=== PATIENT | male | born 1955 | race African-American/Black ===

== ENCOUNTER 2017-04-24 18:31 | Emergency (ER) | payer OTHER ==
[~2017-04-24] VITALS: Ht 177.8 cm; Wt 84.1 kg
[2017-04-24 19:57] LABS: HEMATOCRIT 48.5 % (38.0-50.0); MCH 25.2 PG (29.0-34.0); MCHC 31.5 G/DL (30.0-36.0); MEAN PLAT.VOLUME 10.3 uM^3 (9.0-12.4); PLATELET COUNT 247 K/uL (156-360); RBC DIS.WIDTH-SD 43.4 % (39-53); RED BLOOD COUNT 6.06 M/uL (4.00-5.50); WHITE BLOOD COUNT 11.4 K/uL (4.1-10.2)
[2017-04-24 20:12] LABS: CHLORIDE 104 mEq/L (99-109); POTASSIUM 3.7 mEq/L (3.7-5.4); SODIUM 141 mEq/L (136-147)
[2017-04-24 20:13] LABS: GLUCOSE 165 mg/dL (70-99)
[2017-04-24 20:15] LABS: ANION GAP 13 MEQ/L (2-14)
[2017-04-24 20:17] LABS: GFR ESTIMATE (CALCULATED) > 59 mL/min/
[2017-04-24 20:18] LABS: UREA NITROGEN (BUN) 15 mg/dL (9-23)
[2017-04-24] MEDS ORDERED: ZITHROMAX Z-PA250 MG PO (20:55)
[2017-04-24] MEDS ORDERED: PROVENTIL HFA6.7 GM IH (21:22)
[2017-04-24 21:30] VITALS: BP 141/83
== END 2017-04-24 21:31 | disposition home or self-care (01) ==
LOC: EME 18:31
PROVIDERS: Emergency Medicine
DX: T40.601A Poisoning by unspecified narcotics, accidental (unintentional), initial encounter (principal); J06.9 Acute upper respiratory infection, unspecified; E11.9 Type 2 diabetes mellitus without complications; F17.200 Nicotine dependence, unspecified, uncomplicated
CPT/HCPCS: 71010; 80048; 83605; 85027; 87040; 94640; 99281; 99284; J2310